=== PATIENT | male | born 1985 | race Caucasian/White ===

== ENCOUNTER 2019-02-14 10:24 | Emergency (ER) | payer OTHER ==
[2019-02-14 10:31] VITALS: TEMP 98.1
[2019-02-14] MEDS ORDERED: PSEUDOEPHEDRINE 30 MG TAB PO STA (10:42)
--- NOTE | 2019-02-14 10:49 | ED ---
General Adult HPI - General Chief complaint: Eye Problems Stated complaint: Eye Pain Time Seen by Provider: 02/14/19 10:33 Source: patient Mode of arrival: ambulatory Limitations: no limitations - History of Present Illness Initial comments: 33-year-old male patient presents to the emergency department today for evaluation of pain and pressure behind the right eye. Patient states the last 4 days he has woken up with this headache. Patient states that with this he will have clear tearing from the right eye and right-sided nasal congestion. Patient states that the pain is intense. Denies any blurred or double vision with this. Denies any history of similar symptoms. He denies any nausea or vomiting with this. Denies any numbness, tingling, weakness to his extremities. Does admit to smoking marijuana. Denies any alcohol use. Patient denies any recent rash, fever, chills, shortness breath, chest pain, abdominal pain, diarrhea, constipation, back pain, dizziness, hematuria, dysuria, urinary urgency, urinary frequency, or any other complaints. - Related Data Previous Rx's Medication Instructions Recorded Amoxic-Pot Clav 875-125Mg 1 tab PO Q12HR #20 tablet 02/14/19 [Augmentin 875-125] Fluticasone Nasal [place] [Flonase 2 spr EA NOSTRIL DAILY #1 bottle 02/14/19 Nasal [place]] Allergies Allergy/AdvReac Type Severity Reaction Status Date / Time No Known Allergies Allergy Verified 02/14/19 10:34 Review of Systems ROS Statement: Those systems with pertinent positive or pertinent negative responses have been documented in the HPI. ROS Other: All systems not noted in ROS Statement are negative. Past Medical History Past Medical History: Liver Disease, Pneumonia Additional Past Medical History / Comment(s): 07-10-15 c/o chest pain-admitted for mass of parencyma of lung,lytic lesion of bone on x ray.was recent tx at [facility] for lung infection/ ?pne. other past hx includes: hepatitis c, iv drug use, accidental heroin overdose on 12-27-14 and 02-12-15, anxiety, bipolar, depression. History of Any Multi-Drug Resistant Organisms: None Reported Past Surgical History: No Surgical Hx Reported Additional Past Surgical History / Comment(s): sx for undescended testicle Past Anesthesia/Blood Transfusion Reactions: No Reported Reaction Past Psychological History: Anxiety, Bipolar, Depression Smoking Status: Current every day smoker Past Alcohol Use History: Occasional Past Drug Use History: IV Drug Use, Marijuana - Past Family History Father History Unknown: Yes Mother History Unknown: Yes General Exam Limitations: no limitations General appearance: alert, in no apparent distress, other (Physical well- developed, well-nourished adult male patient in no acute distress. Vital signs upon presentation are temperature 98.1F, pulse 83, respirations 16, blood pressure 127/70, pulse ox 98% on room air.) Eye exam: Present: normal appearance, PERRL, EOMI, other (Pressure in the right eye is 22 mmHg, pressure in the left eye is 20 mmHg.). Absent: scleral icterus, conjunctival injection, nystagmus, periorbital swelling ENT exam: Present: normal exam, normal oropharynx, mucous membranes moist Respiratory exam: Present: normal lung sounds bilaterally. Absent: respiratory distress, wheezes, rales, rhonchi, stridor Cardiovascular Exam: Present: regular rate, normal rhythm, normal heart sounds. Absent: systolic murmur, diastolic murmur, rubs, gallop, clicks GI/Abdominal exam: Present: soft, normal bowel sounds. Absent: distended, tenderness, guarding, rebound, rigid Neurological exam: Present: alert, oriented X3, CN II-XII intact, other (Strength in all 4 extremities is 5/5.) Psychiatric exam: Present: normal affect, normal mood Skin exam: Present: warm, dry, intact, normal color. Absent: rash Course Vital Signs 02/14/19 02/14/19 10:28 13:23 Temperature 98.1 F Pulse Rate 83 82 Respiratory 16 18 Rate Blood Pressure 127/78 122/69 O2 Sat by Pulse 98 99 Oximetry Medical Decision Making - Medical Decision Making 33-year-old male patient presents to the emergency department today for evaluation of pain and pressure behind the right eye. Physical examination revealed no proptosis. Globe appears intact. Pressures were obtained and were within normal ranges for both eyes. Patient is neurologically intact with no focal deficits. CT of the brain was obtained and showed no acute abnormalities. CT of the sinuses was performed and showed severe paranasal sinus disease. Patient will be started on Augmentin and given 4 days. He is instructed to follow-up with the ear, nose, throat specialist for further evaluation. Return parameters were discussed in detail. He verbalizes understanding and agrees wit h this plan. - Radiology Data Radiology results: report reviewed, image reviewed CT brain without contrast was obtained. Report reviewed in its entirety. Impr ession by Dr. Loyd shows no acute intracranial and amount. Sinuses/facial bones reported separately. CT facial bones was obtained without contrast. Report reviewed in its entirety. Impression by Dr. Loyd shows findings suggestive obstruction of the right ostiomeatal complex is secondary severe right-sided paranasal sinus disease. Moderate mucosal thickening throughout the left ethmoid air cells and moderate to severe within the left maxillary sinus. No intraorbital/post septal abnormality identified with particular attention to the right eye. Widely divergent gaze suggests underlying strabismus Disposition Clinical Impression: Paranasal sinus disease, Acute headache Disposition: HOME SELF-CARE Condition: Good Instructions (If sedation given, give patient instructions): Sinusitis (ED) Additional Instructions: Follow-up with the ears, nose, throat specialist for recheck as soon as possible. Complete antibiotic prescription and full. Return to the emergency department for any new, worsening, or concerning symptoms. Prescriptions: Amoxic-Pot Clav 875-125Mg [Augmentin 875-125] 1 tab PO Q12HR #20 tablet Fluticasone Nasal [place] [Flonase Nasal [place]] 2 spr EA NOSTRIL DAILY #1 bottle Is patient prescribed a controlled substance at d/c from ED?: No Referrals: Mila Villanueva MD [Primary Care Provider] - 1-2 days Alvin Abraham DO [Doctor of Osteopathic Medicine] - 1-2 days Time of Disposition: 13:05
[2019-02-14] MEDS ORDERED: SODIUM CHLORIDE 0.9% 1,000 ML IV ONE (11:13)
[2019-02-14] MEDS ORDERED: METOCLOPRAMIDE 5 MG/ML 2 ML VIAL IVP STA (11:13)
[2019-02-14] MEDS ORDERED: KETOROLAC 30 MG/ML 1 ML VIAL IVP STA (11:13)
[2019-02-14] MEDS ORDERED: diphenhydrAMINE 50 MG/ML 1 ML VIAL IVP STA (11:13)
--- NOTE | 2019-02-14 12:27 | CT ---
EXAMINATION TYPE: CT brain wo con DATE OF EXAM: 02/14/2019 COMPARISON: None HISTORY: 33-year-old male with right eye pain, QIU TECHNIQUE: Examination was done in axial plane without intravenous contrast. Coronal and sagittal r econstructions performed. CT DLP: 1244.6 (brain and sinus) mGycm Automated exposure control for dose reduction was used. FINDINGS: There is no evidence of acute intracranial hemorrhage, acute ischemic changes, mass, mass-effect, or extra-axial fluid collection. There is no effacement of cerebral sulci or basal subarachnoid cister ns. There is no hydrocephalus. There is no midline shift. Ramey-white matter distinction is preserv ed. Facial bones reported separately. Mastoid air cells well pneumatized. IMPRESSION: No acute intracranial abnormality seen. Sinuses/facial bones reported separately.
--- NOTE | 2019-02-14 12:57 | CT ---
EXAMINATION TYPE: CT sinus wo con DATE OF EXAM: 02/14/2019 COMPARISON: None HISTORY: 33-year-old male right eye pain, QIU TECHNIQUE: Contiguous axial scanning of the paranasal sinuses without IV contrast. Coronal reconstruc tion performed. CT DLP: 1244.6 (brain and sinus) mGycm Automated exposure control for dose reduction was used. FINDINGS: Near complete opacification of the right maxillary sinus and severe mucosal thickening throughout the left maxillary sinus. There is leftward nasal septal deviation. Moderate to severe opacification right sphenoid sinus, moderate throughout the left ethmoid air cells , and complete opacification right ethmoid air cells. Near complete opacification right frontal sinus . There is opacification at the right osteomeatal complex. Leftward nasal septal deviation. Patient's gaze is slightly divergent suggesting underlying strabismus. Globes appear symmetric. Orbits appear intact. No postseptal intraorbital abnormality identified. IMPRESSION: 1. FINDINGS SUGGEST OBSTRUCTION OF THE RIGHT OSTEOMEATAL COMPLEX WITH SECONDARY SEVERE RIGHT-SIDED PA RANASAL SINUS DISEASE. ENT REFERRAL WILL LIKELY BE BENEFICIAL FOR THIS PATIENT. 2. MODERATE MUCOSAL THICKENING THROUGHOUT THE LEFT ETHMOID AIR CELLS AND MODERATE TO SEVERE WITHIN TH E LEFT MAXILLARY SINUS. 3. NO INTRAORBITAL/POSTSEPTAL ABNORMALITY IDENTIFIED WITH PARTICULAR ATTENTION TO THE RIGHT EYE. 4. WIDELY DIVERGENT GAZE SUGGESTS UNDERLYING STRABISMUS.
[2019-02-14] MEDS ORDERED: AMOXIC-POT CLAV 875MG STARTER 2 EACH TABLET PO STA (13:03)
[2019-02-14 13:24] VITALS: BP 122/69; PULSE 82; RESP 18
== END 2019-02-14 13:24 | disposition home or self-care (01) ==
LOC: EC 10:24
DX: J34.9 Unspecified disorder of nose and nasal sinuses (principal); R51 Headache; H57.11 Ocular pain, right eye; F17.200 Nicotine dependence, unspecified, uncomplicated
CPT/HCPCS: 70450; 70486; 99283; 96374; 96375 ×2; 96361 ×2; J1200; J2765; J1885

== ENCOUNTER 2019-10-13 13:25 | Emergency (ER) | payer OTHER ==
[2019-10-13 13:37] VITALS: TEMP 97.8
[2019-10-13] MEDS ORDERED: DIPH,PERTUS(ACELL)TETVAC-LF 0.5 ML VIAL IM ONE (13:44)
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
[2019-10-13 15:32] VITALS: BP 132/78; PULSE 79; RESP 16
== END 2019-10-13 15:31 | disposition home or self-care (01) ==
LOC: EC 13:25
DX: F41.9 Anxiety disorder, unspecified (principal); F32.9 Major depressive disorder, single episode, unspecified; F22 Delusional disorders; S61.412A Laceration without foreign body of left hand, initial encounter; Z23 Encounter for immunization; F17.200 Nicotine dependence, unspecified, uncomplicated; X58.XXXA Exposure to other specified factors, initial encounter
CPT/HCPCS: 82075; 90471; 90715; 99284

== ENCOUNTER 2020-12-08 14:13 | Emergency (ER) | payer OTHER ==
[2020-12-08 14:18] VITALS: RESP 16; TEMP 97.8
[2020-12-08 14:45] LABS: Appearance,Urine Clear (Clear); Bilirubin,Urine Negative (Negative); Blood,Urine Negative (Negative); Color,Urine Yellow; Glucose,Urine (UA) Negative (Negative); Ketones,Urine Negative (Negative); Leukocyte Esterase,Urine Negative (Negative); Nitrite,Urine Negative (Negative); PH, Urine 5.5 (5.0-8.0); Protein,Urine Trace (Negative); Specific Gravity,Urine 1.026 (1.001-1.035)
--- NOTE | 2020-12-08 14:53 | ED ---
General Adult HPI - General Chief complaint: Abdominal Pain Stated complaint: Poss hernia Time Seen by Provider: 12/08/20 14:20 Source: patient, RN notes reviewed Mode of arrival: ambulatory Limitations: no limitations - History of Present Illness Initial comments: 35-year-old male with a past medical history of pneumonia, IV drug abuse, hepatitis C presents to the emergency room for a chief complaint of pain of the right groin. Patient states this has been ongoing for several months now. States that he feels a bulge at times above his right groin. States that this happens when he yells at work or lifts heavy objects. Patient states he seems to becoming more frequently which is what brought him into the emergency room. Patient has not followed up with primary care or surgery for this. Patient states sometimes the pain radiates into the testicle. At this time patient is denying any pain and is a symptomatic.Patient has no other complaints at this time including shortness of breath, chest pain, nausea or vomiting, headache, or visual changes. - Related Data Previous Rx's Medication Instructions Recorded Amoxic-Pot Clav 875-125Mg 1 tab PO Q12HR #20 tablet 02/14/19 [Augmentin 875-125] Fluticasone Nasal [place] [Flonase 2 spr EA NOSTRIL DAILY #1 bottle 02/14/19 Nasal [place]] Allergies Allergy/AdvReac Type Severity Reaction Status Date / Time No Known Allergies Allergy Verified 12/08/20 14:18 Review of Systems ROS Statement: Those systems with pertinent positive or pertinent negative responses have been documented in the HPI. ROS Other: All systems not noted in ROS Statement are negative. Past Medical History Past Medical History: Pneumonia Additional Past Medical History / Comment(s): 07-10-15 c/o chest pain-admitted for mass of parencyma of lung,lytic lesion of bone on x ray.was [facility]/ ?pne. other past hx includes: hepatitis C, iv drug use, accidental heroin overdose on 12-27-14 and 02-12-15, anxiety, bipolar, depression. History of Any Multi-Drug Resistant Organisms: None Reported Past Surgical History: No Surgical Hx Reported Additional Past Surgical History / Comment(s): sx for undescended testicle Past Anesthesia/Blood Transfusion Reactions: No Reported Reaction Past Psychological History: Anxiety, Bipolar, Depression Past Alcohol Use History: Occasional Past Drug Use History: None Reported - Past Family History Father History Unknown: Yes Mother History Unknown: Yes General Exam Limitations: no limitations General appearance: alert, in no apparent distress Head exam: Present: atraumatic, normocephalic, normal inspection Eye exam: Present: normal appearance, PERRL, EOMI. Absent: scleral icterus, conjunctival injection, periorbital swelling ENT exam: Present: normal exam, mucous membranes moist Neck exam: Present: normal inspection, full ROM. Absent: tenderness, meningismus, lymphadenopathy Respiratory exam: Present: normal lung sounds bilaterally. Absent: respiratory distress, wheezes, rales, rhonchi, stridor Cardiovascular Exam: Present: regular rate, normal rhythm, normal heart sounds. Absent: systolic murmur, diastolic murmur, rubs, gallop, clicks GI/Abdominal exam: Present: soft, normal bowel sounds. Absent: distended, tenderness, guarding, rebound, rigid exam: Present: normal inspection, other (Kimmie SOMMERS present for exam). Absent: testicular tenderness, urethral discharge, scrotal swelling, vertical testicular lie, circumcision Course Vital Signs 12/08/20 14:14 Temperature 97.8 F Pulse Rate 62 Respiratory 16 Rate Blood Pressure 133/88 O2 Sat by Pulse 98 Oximetry Medical Decision Making - Medical Decision Making HPI physical exam as documented. Patient has pain to the right groin for the past several months. No appreciable hernia on exam. No testicular pain or tenderness. Ultrasound did reveal right groin adenopathy with largest measuring 1 x 0.5 x 0.6 cm. Unable to visualize a break in the wall for hernia with Valsalva at this time. Urinalysis unremarkable, I do not see any evidence of infection. I do think patient needs to follow up with primary care for adenopathy. Given symptoms are consistent with hernia such as feelings of pressure when yelling or lifting heavy objects we will refer him to general surgery. No evidence for incarcerated or strangulated hernia now. - Lab Data Lab Results 12/08/20 Range/Units 14:39 Urine Color Yellow Urine Appearance Clear (Clear) Urine pH 5.5 (5.0-8.0) Ur Specific [place] 1.026 (1.001-1.035) Urine Protein Trace H (Negative) Urine Glucose (UA) Negative (Negative) Urine Ketones Negative (Negative) Urine Blood Negative (Negative) Urine Nitrite Negative (Negative) Urine Bilirubin Negative (Negative) Urine Urobilinogen 2.0 (<2.0) mg/dL Ur Leukocyte Esterase Negative (Negative) Disposition Clinical Impression: Adenopathy, Rt groin pain Disposition: HOME SELF-CARE Condition: Good Instructions (If sedation given, give patient instructions): Groin Pain (ED), Lymphadenopathy (ED) Additional Instructions: Please follow-up with your doctor in one to 2 days as ultrasound results. Follow up with general surgery. Return to the emergency room for any worsening symptoms such as severe pain that will not subside. Is patient prescribed a controlled substance at d/c from ED?: No Referrals: Mila Villanueva MD [Primary Care Provider] - 1-2 days Chacorta Cerna MD [STAFF PHYSICIAN] - 1-2 days Time of Disposition: 15:49
--- NOTE | 2020-12-08 15:23 | US ---
EXAMINATION TYPE: US groin RT DATE OF EXAM: 12/08/2020 COMPARISON: NONE CLINICAL HISTORY: hernia. right groin pain right groin scanned, lymph nodes visualized with largest = 1.0 x 0.5 x 0.6cm. unable to visualize a b reak in the wall (hernia) with valsalva by ultrasound at this time. If additional evaluation would b e of benefit, consider CT to evaluate for hernia. IMPRESSION: 1. Right groin adenopathy. 2. No discrete abnormality to suggest inguinal hernia.
[2020-12-08 16:31] VITALS: BP 135/82; PULSE 65
== END 2020-12-08 16:30 | disposition home or self-care (01) ==
LOC: EC 14:13
DX: R59.9 Enlarged lymph nodes, unspecified (principal); F32.9 Major depressive disorder, single episode, unspecified; Z86.19 Personal history of other infectious and parasitic diseases
CPT/HCPCS: 81003; 99284

== ENCOUNTER → 2021-09-14 | Outpatient (CLI) | payer BC, OTHER ==
--- NOTE | 2021-09-14 11:25 | US ---
EXAMINATION TYPE: US scrotum with doppler. Grayscale and color Doppler Duplex imaging performed of t he scrotum. DATE OF EXAM: 09/14/2021 COMPARISON: NONE CLINICAL HISTORY: Testicular pain N50.81. Right testicular pain x months noted with exercise workout; palpable noted inferiorly right sac EXAM MEASUREMENTS: TESTICLES: Right Testicle: 5.7 x 4.0 x 2.3 cm Left Testicle: 4.4 x 3.6 x 1.8 cm EPIDIDYMIS HEAD: Right Epididymis: 0.6 x 1.6 x 1.0 cm Left Epididymis: 1.0 x 1.7 x 0.9 cm Doppler performed to assess for testicular vascularity; good bilateral color flow and Doppler wavefor ms are seen. Right epididymal head cyst seen = 0.2 x 0.2 x 0.1cm. Left epididymal head cyst seen = 0.3 x 0.2 x 0.3 cm. Presence of hydroceles: small hydrocele noted medial inferior right scrotal sac = 2.1 x 0.9 x 1.1cm. Presence of varicoceles: Prominent vein diameter in neutral transverse position only seen inferiorly bilaterally: right inferior vein diameter = 2.8mm and left inferior vein diameter 3.6mm (normal size less than 2.5mm). IMPRESSION: Suspect small inferior bilateral varicoceles. No concerning focal intratesticular mass. T iny epididymal cysts bilaterally incidentally noted. Satisfactory symmetric blood flow to both testic les seen.
== END | disposition home or self-care (01) ==
LOC: RADUSWWP 08:27
PROVIDERS: ATTEND Internal Medicine
DX: N50.811 Right testicular pain (principal)
CPT/HCPCS: 76870; 93975

== ENCOUNTER 2022-06-02 18:43 | Emergency (ER) | payer BC, OTHER ==
[2022-06-02 19:30] VITALS: BP 116/69; PULSE 62; RESP 18; TEMP 98
[2022-06-02] MEDS ORDERED: ORPHENADRINE 30 MG/ML 2 ML VIAL IM STA (19:45)
[2022-06-02] MEDS ORDERED: KETOROLAC 15 MG/ML 1 ML VIAL IM STA (19:45)
[2022-06-02] MEDS ORDERED: ACETAMINOPHEN TAB 500 MG TAB PO STA (19:45)
--- NOTE | 2022-06-02 19:51 | ED ---
Back Pain HPI - General Chief Complaint: Back Pain/Injury Stated Complaint: lower back pain Time Seen by Provider: 06/02/22 19:35 Source: patient, RN notes reviewed Limitations: no limitations - History of Present Illness Initial Comments: Patient injured his back when he was doing some work with a friend. Patient states he was lifting. There is no fall or direct trauma. Patient complaining of pain in the right lower back which is exacerbated by twisting, bending, lifting. No urinary symptomology. No fever or chills. No back pain elsewhere. No radicular pain. No headache, no fever or chills, no changes in vision or hearing, no sore throat or difficulty with speech, no neck pain, no chest pain or shortness of breath, no abdominal pain, no nausea or vomiting, no changes in urination or bowel movements, no numbness or tingling, no extremity pain, no skin rashes or lesions. Past medical, surgical, social, and family history reviewed. MD Complaint: back pain - Related Data Previous Rx's Medication Instructions Recorded Amoxic-Pot Clav 875-125Mg 1 tab PO Q12HR #20 tablet 02/14/19 [Augmentin 875-125] Fluticasone Nasal [place] [Flonase 2 spr EA NOSTRIL DAILY #1 bottle 02/14/19 Nasal [place]] Acetaminophen Tab [Tylenol Tab] 500 mg PO Q6H PRN #24 tablet 06/02/22 Cyclobenzaprine [Flexeril] 10 mg PO TID PRN #20 tab 06/02/22 Naproxen [Naprosyn] 375 mg PO Q12HR PRN #20 tablet 06/02/22 Allergies Allergy/AdvReac Type Severity Reaction Status Date / Time No Known Allergies Allergy Verified 06/02/22 19:30 Review of Systems ROS Statement: Those systems with pertinent positive or pertinent negative responses have been documented in the HPI. ROS Other: All systems not noted in ROS Statement are negative. Past Medical History Past Medical History: Pneumonia Additional Past Medical History / Comment(s): 07-10-15 c/o chest pain-admitted for mass of parencyma of lung,lytic lesion of bone on x ray.was recent tx at [facility] for lung infection/ ?pne. other past hx includes: hepatitis C, iv drug use, accidental heroin overdose on 3-21-15 and 5-7-15, anxiety, bipolar, depression. History of Any Multi-Drug Resistant Organisms: None Reported Past Surgical History: No Surgical Hx Reported Additional Past Surgical History / Comment(s): sx for undescended testicle Past Anesthesia/Blood Transfusion Reactions: No Reported Reaction Past Psychological History: Anxiety, Bipolar, Depression Smoking Status: Never smoker Past Alcohol Use History: Occasional Past Drug Use History: Marijuana - Past Family History Father History Unknown: Yes Mother History Unknown: Yes General Exam - General Exam Comments Initial Comments: Patient does not appear to be ill or toxic. Vital signs stable, cranial nerves II through XII grossly intact Limitations: no limitations General appearance: in distress (Mild) Head exam: Present: atraumatic, normocephalic, normal inspection Eye exam: Present: normal appearance, PERRL, EOMI. Absent: scleral icterus, conjunctival injection, periorbital swelling ENT exam: Present: normal exam, mucous membranes moist Neck exam: Present: normal inspection, full ROM. Absent: tenderness, meningismus, lymphadenopathy Respiratory exam: Present: normal lung sounds bilaterally. Absent: respiratory distress, wheezes, rales, rhonchi, stridor Cardiovascular Exam: Present: regular rate, normal rhythm, normal heart sounds. Absent: systolic murmur, diastolic murmur, rubs, gallop, clicks GI/Abdominal exam: Present: soft, normal bowel sounds. Absent: distended, tenderness, guarding, rebound, rigid Extremities exam: Present: normal inspection, full ROM, normal capillary refill. Absent: tenderness, pedal edema, joint swelling, calf tenderness Back exam: Present: normal inspection, full ROM (With pain in the right lumbar paraspinal area), tenderness (Minimal tenderness, right lumbar paraspinals with palpable spasm), muscle spasm (Right lumbar paraspinal), paraspinal tenderness, other (Straight leg raise negative bilaterally. [facility] test is normal). Absent: CVA tenderness (R), CVA tenderness (L), vertebral tenderness, rash noted Neurological exam: Present: alert, oriented X3, CN II-XII intact, normal gait, reflexes normal, other (Great toe extensor strength is normal). Absent: altered, motor sensory deficit Psychiatric exam: Present: normal affect, normal mood Skin exam: Present: warm, dry, intact, normal color. Absent: rash Course Vital Signs 06/02/22 19:27 Temperature 98.0 F Pulse Rate 62 Respiratory 18 Rate Blood Pressure 116/69 O2 Sat by Pulse 99 Oximetry Medical Decision Making - Medical Decision Making -There are no red flags for concerning back pathology. Specifically: -No history of cancer, this is not a mass effect, MRI not indicated. -No anticoagulation, this is not a bleed. -No fevers, no IVDU, this is not an infectious process. -No trauma, no bony pain, x-rays are not indicated. -With a normal neuro exam, and no urinary or bowel retention or incontinence, there is no clinical sign of motor defect or cauda equina - MRI is not indicated at this point. -No pulsating abdominal mass or risk factors for AAA. -Pain is relieved with rest, which is also less concerning. -I do not believe that x-rays or emergent MRI is indicated at this time. -We will treat symptomatically and discharge home with follow up instructions. -Stretching/strengthening exercise given to patient and they will be referred to physical therapy -Patient is instructed to use [id number] analgesics as directed on packaging for pain. Patient was told to return to the ER for any signs or symptoms worsen. Told to return immediately if any other problems arise. All questions answered. Treatment plan discussed. Patient in agreement Every effort has been made to ensure accuracy of this dictation. However, due to the limitations of electronic medical records and dictation devices, errors in charting still occur. Supervising physicians Dr. Pink Disposition Clinical Impression: Acute lumbar myofascial strain Disposition: HOME SELF-CARE Condition: Stable Instructions (If sedation given, give patient instructions): Low Back Strain (ED) Additional Instructions: Follow-up with your regular physician as directed. Return to the ER immediately if any symptoms worsen, new symptoms arise, or any other problems develop. Prescriptions: Cyclobenzaprine [Flexeril] 10 mg PO TID PRN #20 tab PRN Reason: Spasms Naproxen [Naprosyn] 375 mg PO Q12HR PRN #20 tablet PRN Reason: Pain Acetaminophen Tab [Tylenol Tab] 500 mg PO Q6H PRN #24 tablet PRN Reason: Pain Is patient prescribed a controlled substance at d/c from ED?: No Referrals: Mila Villanueva MD [Primary Care Provider] - 1-2 days Time of Disposition: 19:47
== END 2022-06-02 20:25 | disposition home or self-care (01) ==
LOC: EC 18:43
DX: S39.012A Strain of muscle, fascia and tendon of lower back, initial encounter (principal); X50.9XXA Other and unspecified overexertion or strenuous movements or postures, initial encounter; Y93.89 Activity, other specified
CPT/HCPCS: 99283; 96372; J2360; J1885

== ENCOUNTER 2022-09-23 07:20 | Day surgery (SDC) | payer BC, OTHER ==
[2022-09-20 13:55] VITALS: BMI 25.1
[2022-09-23 07:59] VITALS: RESP 16; TEMP 98.4
[2022-09-23] MEDS ORDERED: LACTATED RINGERS 1,000 ML IV ONE (07:59)
[2022-09-23] MEDS ORDERED: MIDAZOLAM 2 MG/2 ML VIAL ONE (08:41)
[2022-09-23] MEDS ORDERED: PROPOFOL 10 MG/ML 20 ML VIAL IV ONE (08:41)
[2022-09-23] MEDS ORDERED: fentaNYL (PF) 50 MCG/ML 2 ML AMP ONE (08:41)
--- NOTE | 2022-09-23 08:56 | P.PCN ---
Date of Procedure: 09/23/22 Procedure(s) Performed: BRIEF HISTORY: Patient is a 37-year-old pleasant white male scheduled for an elective colonoscopy as a part of evaluation of intermittent rectal bleeding for the last 2 years duration. PROCEDURE PERFORMED: Colonoscopy. PREOPERATIVE DIAGNOSIS: Intermittent rectal bleeding of 2 years duration. IV sedation per Anesthesia. PROCEDURE: After informed consent was obtained, the patient, was brought into the endoscopy unit. IV sedation was administered by Anesthesia under continuous monitoring. Digital rectal examination was normal. Initially the Olympus CF-160 flexible video colonoscope was then inserted in the rectum, gradually advanced into the cecum without any difficulty. Careful examination was performed as the scope was gradually being withdrawn. Ileocecal valve and the appendiceal orifice were visualized and appeared normal. Prep was excellent. Mucosa of the cecum, ascending colon, transverse colon, descending colon, sigmoid colon, and rectum appeared normal. Retroflexion was performed in the rectum and small internal hemorrhoids were seen. The patient tolerated the procedure well. IMPRESSION: Normal-appearing colon from rectum to cecum with no evidence of colorectal neoplasia . Small internal hemorrhoids. RECOMMENDATIONS: Findings of this examination were discussed with the patient as well as his family..he was advised to be a high-fiber diet and take fiber supplements a regular basis. Recommend repeat screening colonoscopy in 10 years
[2022-09-23 09:41] VITALS: BP 121/77; PULSE 51
== END 2022-09-23 09:43 | disposition home or self-care (01) ==
LOC: ORWHC2ENDO 07:20
PROVIDERS: ATTEND Internal Medicine Gastroenterology
DX: K64.8 Other hemorrhoids (principal); K62.5 Hemorrhage of anus and rectum
CPT/HCPCS: 45378; J2250; J3010; J2704

== ENCOUNTER → 2023-02-01 | Outpatient (CLI) | payer OTHER ==
[2023-02-01 15:24] LABS: Basophils # (A) 0.05 X 10*3/uL (0.00-0.10); Basophils % (A) 0.9 %; Eosinophils # (A) 0.31 X 10*3/uL (0.04-0.35); Eosinophils % (A) 5.3 %; HCT 42.6 % (39.6-50.0); Immature Grans, Automated 0.2 %; Lymphocytes # (A) 1.89 X 10*3/uL (0.90-5.00); Lymphocytes % (A) 32.5 %; MCH 31.5 pg (27.0-32.0); MCHC 32.9 g/dL (32.0-37.0); MCV 95.9 fL (80.0-97.0); Mean Platelet Volume 12.2 fL (9.5-12.2); Monocytes # (A) 0.57 X 10*3/uL (0.20-1.00); Monocytes % (A) 9.8 %; NRBC Per 100 WBC 0 /100 WBCS (0.0-0.0); Neutrophils # (A) 2.99 X 10*3/uL (1.80-7.70); Neutrophils % (A) 51.3 %; Platelet Count 135 X 10*3/uL (140-440); RBC 4.44 X 10*6/uL (4.40-5.60); RDW 12.9 % (11.5-14.5); WBC 5.82 X 10*3/uL (4.50-10.00)
[2023-02-01 16:15] LABS: ALT 42 U/L (10-49); AST 28 U/L (14-35); African American GFR (CKD) 125.1 (60.0-200.0); Albumin 4.3 g/dL (3.8-4.9); Albumin/Globulin Ratio 1.87 (1.60-3.17); Alkaline Phosphatase 70 U/L (41-126); BUN/Creat Ratio 11.78 Ratio (12.00-20.00); Blood Urea Nitrogen 10.6 mg/dL (9.0-27.0); Calcium 8.9 mg/dL (8.7-10.3); Carbon Dioxide 25.8 mmol/L (20.0-27.5); Chloride 110 mmol/L (96-109); Globulin 2.3 g/dL (1.6-3.3); Glucose 90 mg/dL (70-110); Potassium 4.2 mmol/L (3.5-5.5); Sodium 144 mmol/L (135-145); Total Bilirubin <0.15 mg/dL (0.30-1.20); Total Protein 6.6 g/dL (6.2-8.2)
== END | disposition home or self-care (01) ==
LOC: LABWHC1 09:39
PROVIDERS: ATTEND Nurse Practitioner Family
DX: Z86.19 Personal history of other infectious and parasitic diseases (principal)
CPT/HCPCS: 36415; 80053; 85025; 87522

== ENCOUNTER → 2023-02-23 | Outpatient (CLI) | payer OTHER ==
[2023-02-23 15:04] LABS: Albumin 4.4 g/dL (3.8-4.9); Albumin/Globulin Ratio 1.83 (1.60-3.17); Anion Gap 9.7 mmol/L (10.00-18.00); BUN/Creat Ratio 9.75 Ratio (12.00-20.00); Blood Urea Nitrogen 9.1 mg/dL (9.0-27.0); Carbon Dioxide 25.3 mmol/L (20.0-27.5); Globulin 2.4 g/dL (1.6-3.3); Non-African American GFR(CKD) 103.5 (60.0-200.0); Potassium 4.2 mmol/L (3.5-5.5); Total Bilirubin 0.4 mg/dL (0.30-1.20); Total Protein 6.9 g/dL (6.2-8.2)
[2023-02-23 15:19] LABS: Hepatitis B Surface Antigen Nonreactive (Nonreactive)
== END | disposition home or self-care (01) ==
LOC: LABWHC1 07:36
PROVIDERS: ATTEND Nurse Practitioner Family
DX: B18.2 Chronic viral hepatitis C (principal)
CPT/HCPCS: 36415; 80053; 82105; 86704; 87340

== ENCOUNTER → 2023-03-02 | Outpatient (CLI) | payer OTHER ==
--- NOTE | 2023-03-02 12:49 | US ---
EXAMINATION TYPE: US liver DATE OF EXAM: 03/02/2023 COMPARISON: NONE CLINICAL INDICATION: Male, 37 years old with history of B18.2 CHRONIC HEP C; Chronic Hepatitis C TECHNIQUE: Multiple sonographic images of the right upper quadrant are obtained. FINDINGS: EXAM MEASUREMENTS: Liver Length: 16.8 cm Gallbladder Wall: 0.3 cm CBD: 0.4 cm Right Kidney: 10.2 x 5.1 x 4.1 cm Pancreas: Tail obscured by overlying bowel gas Liver: appears wnl. No focal lesion. Gallbladder: Scattered ring down artifact along the anterior wall. No abnormal distention, wall thic kening, or shadowing calculus. Evidence for sonographic Rivas's sign: no CBD: wnl Right Kidney: no evidence of hydronephrosis IMPRESSION: Some scattered cholesterolosis/adenomyomatosis along the gallbladder wall. No gallstones or biliary d uctal dilatation. No focal hepatic lesion seen.
== END | disposition home or self-care (01) ==
LOC: RADUSWWP 07:53
PROVIDERS: ATTEND Internal Medicine Gastroenterology
DX: B18.2 Chronic viral hepatitis C (principal); K82.8 Other specified diseases of gallbladder
CPT/HCPCS: 76705

== ENCOUNTER 2023-03-19 15:24 | Emergency (ER) | payer OTHER ==
--- NOTE | 2023-03-19 16:32 | ED ---
General Adult HPI - General Source: patient, RN notes reviewed Limitations: no limitations <Jose Dietz - Last Filed: 03/19/23 16:31> - General Source: patient, family, RN notes reviewed Limitations: no limitations <James Pink - Last Filed: 03/19/23 18:01> - General Chief complaint: Extremity Problem,Nontraumatic Stated complaint: right leg numbness Time Seen by Provider: 03/19/23 16:31 - History of Present Illness Initial comments: 38-year-old male presents emergency Department chief complaint right leg pain and numbness. Patient states started 2 days ago which he that he is having sciatica issues. Patient states that he was seen at [facility] and received Toradol he states that symptoms seemed to worsen. He denies any bowel, bladder incontinence or retention or saddle anesthesias. Patient states pains radiating down his right leg from his back and hip region (Jose Dietz) Patient is a pleasant 38-year-old male presenting to the emergency department with concerns with right leg pain. Patient states symptoms started right lower back and did radiate to the right leg, even towards the knee. Patient has pierced seizures. No loss of sensation. No weakness. No tendons retention of bowel or bladder products. Patient does have history of similar symptoms previously. Patient has previously seen for this. (James Pink) - Related Data Previous Rx's Medication Instructions Recorded Cyclobenzaprine [Flexeril] 10 mg PO TID PRN #12 tablet 03/19/23 predniSONE [Deltasone] 20 mg PO BID #10 tab 03/19/23 Allergies Allergy/AdvReac Type Severity Reaction Status Date / Time No Known Allergies Allergy Verified 03/19/23 15:41 Review of Systems ROS Other: All systems not noted in ROS Statement are negative. <Jose Dietz - Last Filed: 03/19/23 16:31> ROS Other: All systems not noted in ROS Statement are negative. Constitutional: Denies: fever Eyes: Denies: eye pain ENT: Denies: ear pain Respiratory: Denies: cough Cardiovascular: Denies: chest pain Endocrine: Denies: fatigue Gastrointestinal: Denies: abdominal pain Genitourinary: Denies: urgency Musculoskeletal: Reports: as per HPI, back pain Skin: Denies: rash Neurological: Reports: paresthesias. Denies: weakness <James Pink - Last Filed: 03/19/23 18:01> ROS Statement: Those systems with pertinent positive or pertinent negative responses have been documented in the HPI. Past Medical History Past Medical History: GI Bleed, Pneumonia Additional Past Medical History / Comment(s): chest pain to right side at nipple line similar to past treated mass of parenchyma of lung, was tx at [facility] for lung infection and evaluated at [facility] in 2019 and told hsad pulled muscle and was suppose to have a biospy done of mass but not yet done. other past hx includes: hepatitis C, iv drug use and polysubstance abuse sober at 5 years, previous documented unintentional heroin overdose on 12-27-14 and 02-12-15 pt now states was intentional in retrospect, anxiety, bipolar, depression.lytic lesion of bone, bright red rectal bleeding for 20 years hx hemmorhhoids History of Any Multi-Drug Resistant Organisms: None Reported Past Surgical History: No Surgical Hx Reported Additional Past Surgical History / Comment(s): sx for undescended testicle Past Anesthesia/Blood Transfusion Reactions: No Reported Reaction Past Psychological History: Anxiety, Bipolar, Depression Smoking Status: Former smoker, Vaper Past Alcohol Use History: Occasional Past Drug Use History: Marijuana - Past Family History Sister(s) Family Medical History: Cancer Father History Unknown: Yes Family Medical History: No Reported History Mother History Unknown: Yes Family Medical History: Chest Pain / Angina, Myocardial Infarction ([place]) <Jose Dietz - Last Filed: 03/19/23 16:31> General Exam Limitations: no limitations <Jose Dietz - Last Filed: 03/19/23 16:31> Limitations: no limitations General appearance: alert, in no apparent distress Head exam: Present: normocephalic Eye exam: Present: normal appearance Neck exam: Present: normal inspection Respiratory exam: Present: normal lung sounds bilaterally Cardiovascular Exam: Present: regular rate, normal rhythm Expanded Peripheral pulses: 2+: Posterior Tibialis (R), Posterior Tibialis (L), Dorsalis Pedis (R), Dorsalis Pedis (L) GI/Abdominal exam: Present: soft. Absent: tenderness Extremities exam: Present: normal inspection. Absent: tenderness Back exam: Present: tenderness (Mild tenderness near the right PSIS) Neurological exam: Present: alert. Absent: motor sensory deficit Expanded Speech: Present: fluid speech Sensory exam: Lower Extremity Light Touch: Normal Motor strength exam: RUE: 5, LUE: 5, RLE: 5, LLE: 5 Psychiatric exam: Present: normal affect, normal mood Skin exam: Present: normal color <JoesphJames - Last Filed: 03/19/23 18:01> - General Exam Comments Initial Comments: Visual Physical Exam Vital signs reviewed General: Well-appearing, nontoxic, no acute distress. Head: Normocephalic, atraumatic Eyes: PERRLA, EOMI ENT: Airway patent Chest: Nonlabored breathing Skin: No visual rash, normal skin tone Neuro: Alert and oriented 3 Musculoskeletal: No gross abnormalities (Jose Dietz) Course Vital Signs 03/19/23 15:39 Temperature 98.4 F Pulse Rate 71 Respiratory 20 Rate Blood Pressure 128/87 O2 Sat by Pulse 99 Oximetry Medical Decision Making <PinkJames - Last Filed: 03/19/23 18:01> - Medical Decision Making Was pt. sent in by a medical professional or institution (, PA, [employer], urgent care, hospital, or half-way...) When possible be specific @ -No Did you speak to anyone other than the patient for history (EMS, parent, family, police, friend...)? What history was obtained from this source @ -Family present health right history including history of previous problems and steroid injection from last visit. Did you review nursing and triage notes (agree or disagree)? Why? @ -I reviewed and agree with nursing and triage notes Were old charts reviewed (outside hosp., previous admission, EMS record, old EKG, old radiological studies, urgent care reports/EKG's, half-way records)? Report findings @ -No old charts were reviewed Differential Diagnosis (chest pain, altered mental status, abdominal pain women, abdominal pain men, vaginal bleeding, weakness, fever, dyspnea, syncope, headache, dizziness, GI bleed, back pain, seizure, CVA, palpatations, mental health)? @ -Differential Back Pain: Strain, zoster, cauda equina syndrome, epidural abscess, vertebral osteomyelitis, discitis, fracture, subluxation, disc herniation, DJD, spinal stenosis, dissection, AAA, pancreatitis, peptic ulcer disease, pyelonephritis, kidney stone, this is not meant to be an all-inclusive list. EKG interpreted by me (3pts min.). @ -As above X-rays interpreted by me (1pt min.). @ -Lumbar x-rays show mild degenerative changes CT interpreted by me (1pt min.). @ -None done U/S interpreted by me (1pt. min.). @ -None done What testing was considered but not performed or refused? (CT, X-rays, U/S, labs)? Why? @ -None What meds were considered but not given or refused? Why? @ -None Did you discuss the management of the patient with other professionals (professionals i.e. Dr., PA, [employer] [facility], lab, RT, psych nurse, health social work professor, ice cream machine operator, teacher, air antisubmarine officer, pillowcase folder)? Give summary @ -No Was smoking cessation discussed for >3mins.? @ -No Was critical care preformed (if so, how long)? @ -No Were there social determinants of health that impacted care today? How? (Homelessness, low income, unemployed, alcoholism, drug addiction, transportation, low edu. Level, literacy, decrease access to med. care, penitentiary, rehab)? @ -No Was there de-escalation of care discussed even if they declined (Discuss DNR or withdrawal of care, Hospice)? DNR status @ -No What co-morbidities impacted this encounter? (DM, HTN, Smoking, COPD, CAD, Cancer, CVA, ARF, Chemo, Hep., AIDS, mental health diagnosis, sleep apnea, morbid obesity)? @ -None Was patient admitted / discharged? Hospital course, mention meds given and route, prescriptions, significant lab abnormalities, going to OR and other pertinent info. @ -Patient evaluated. Patient and family updated. Patient will receive injections and prescription. Recommended follow-up with primary care physician and consider physical therapy. Undiagnosed new problem with uncertain prognosis? @ -No Drug Therapy requiring intensive monitoring for toxicity (Heparin, Nitro, Insulin, Cardizem)? @ -No Were any procedures done? @ -No Diagnosis/symptom? @ -Back pain, leg pain Acute, or Chronic, or Acute on Chronic? @ -Acute, acute Uncomplicated (without systemic symptoms) or Complicated (systemic symptoms)? @ -default Side effects of treatment? @ -No Exacerbation, Progression, or Severe Exacerbation? @ -No Poses a threat to life or bodily function? How? (Chest pain, [place], [place], pneumonia, PE, COPD, DKA, ARF, appy, cholecystitis, CVA, Diverticulitis, Homicidal, Suicidal, threat to staff... and all critical care pts) @ -No (James Pink) Disposition <Jose Dietz - Last Filed: 03/19/23 16:31> Is patient prescribed a controlled substance at d/c from ED?: No Time of Disposition: 18:00 <James Pink - Last Filed: 03/19/23 18:01> Clinical Impression: Back pain, Leg pain Disposition: HOME SELF-CARE Condition: Stable Instructions (If sedation given, give patient instructions): Back Pain (ED) Additional Instructions: Please do follow-up to primary care physician in the next couple days for recheck. Prescriptions have been sent to pharmacy. Have your primary care physician consider physical therapy. Return for increased pain, weakness, loss of control of bowel or bladder, worsening symptoms or other concerns. Prescriptions: predniSONE [Deltasone] 20 mg PO BID #10 tab Cyclobenzaprine [Flexeril] 10 mg PO TID PRN #12 tablet PRN Reason: Pain Referrals: Mila Villanueva MD [Primary Care Provider] - 1-2 days
--- NOTE | 2023-03-19 16:59 | XR ---
EXAMINATION TYPE: XR lumbosacral spine 5 views DATE OF EXAM: 03/19/2023 Comparison: None Clinical History: 38-year-old male with back and right leg pain Findings: There is leftward focal lesion. 5 lumbar type vertebral bodies. Mild facet degenerative change lower lumbar spine. Somewhat nodular appearance to the pedicle mid and lower lumbar spine may reflect under lying congenital spinal canal narrowing. Mild disc space narrowing scattered throughout. Vertebral penelope dy heights are preserved. Trace grade 1 retrolisthesis L1-L2. Remaining alignment is maintained. Impression: 1. Scattered mild degenerative disc disease. Facet arthropathy lower lumbar spine. Trace grade 1 retr olisthesis L1-L2. 2. Somewhat short appearance to the pedicles within the mid and lower lumbar spine could reflect a co mponent of congenital spinal canal stenosis.
[2023-03-19] MEDS ORDERED: KETOROLAC 15 MG/ML 1 ML VIAL IM STA (17:56)
[2023-03-19] MEDS ORDERED: HYDROmorphone 1 MG/ML 1 ML SYRINGE IM STA (17:56)
[2023-03-19] MEDS ORDERED: ORPHENADRINE 30 MG/ML 2 ML VIAL IM STA (18:00)
[2023-03-19 18:15] VITALS: BP 147/87; PULSE 57; RESP 18; TEMP 97.7
== END 2023-03-19 18:15 | disposition home or self-care (01) ==
LOC: EC 15:24
DX: M79.604 Pain in right leg (principal); M54.9 Dorsalgia, unspecified; Z86.59 Personal history of other mental and behavioral disorders; F17.290 Nicotine dependence, other tobacco product, uncomplicated; F12.90 Cannabis use, unspecified, uncomplicated
CPT/HCPCS: 72110; 99284; 96372 ×2; J2360; J1885

== ENCOUNTER 2023-04-19 09:27 | Day surgery (SDC) | payer OTHER ==
[~2023-04-19 09:27] MED LIST: LACTATED RINGERS 1,000 ML IV SCH; LIDOCAINE 1% (10MG/ML) FOR IV START INTRADERMA PRN
[2023-04-19 09:59] VITALS: TEMP 97.2
[2023-04-19] MEDS ORDERED: LIDOCAINE 2% INJ 20 MG/ML (2 ML VIAL) ONE (10:46)
[2023-04-19] MEDS ORDERED: PROPOFOL 10 MG/ML 20 ML VIAL IV ONE (10:46)
--- NOTE | 2023-04-19 10:54 | P.PCN ---
Date of Procedure: 04/19/23 Procedure(s) Performed: BRIEF HISTORY: Patient is a 38-year-old, pleasant, white male scheduled for an upper endoscopy as a part of evaluation of epigastric pain and atypical chest pain for the last several months duration. He denies any heartburn. He reports no dysphagia or odynophagia.. PROCEDURE PERFORMED: Esophagogastroduodenoscopy with biopsy. PREOPERATIVE DIAGNOSIS: Epigastric pain and chest pain. IV sedation per anesthesia. PROCEDURE: After informed consent was obtained, the patient was brought into the endoscopy unit. IV sedation was administered by Anesthesia under continuous monitoring. Initially the Olympus GIF-140 video endoscope was inserted into the mouth. Esophagus intubated without any difficulty. It was gradually advanced into the stomach and duodenum and carefully examined. The bulb had mild duodenitis and the second part of the duodenum appeared normal. The scope at this time was withdrawn to the stomach, adequately insufflated with air, and upon careful examination, mucosa of the antrum, had mild gastritis and biopsies were done from this area. Mucosa of the body, cardia and the fundus appeared normal. The scope was then withdrawn into the esophagus. The GE junction was located at 39 cm from the incisors. There were linear erosions in the distal esophagus consistent with LA grade B reflux esophagitis. Rest of esophagus appeared normal and ulcerations seen and the patient tolerated the procedure well. IMPRESSION: 1. Linear erosions in the distal esophagus consistent with LA grade B reflux esophagitis. 2. Mild antral gastritis and duodenitis. RECOMMENDATIONS: The findings of this examination were discussed with the patient as well as his family. He was advised to follow with the biopsy results. Recommend Pepcid 20 mg at bedtime and follow antrum reflux measures..
[2023-04-19 11:31] VITALS: BP 128/78; PULSE 81; RESP 16
== END 2023-04-19 11:43 | disposition home or self-care (01) ==
LOC: ORWHC2ENDO 09:27
PROVIDERS: ATTEND Internal Medicine Gastroenterology
DX: K29.50 Unspecified chronic gastritis without bleeding (principal); K21.00 Gastro-esophageal reflux disease with esophagitis, without bleeding; F12.90 Cannabis use, unspecified, uncomplicated; K29.80 Duodenitis without bleeding; Z79.899 Other long term (current) drug therapy
CPT/HCPCS: 88305; 43239; J2704; J2001

== ENCOUNTER → 2023-06-07 | Outpatient (CLI) | payer OTHER ==
[2023-06-07 15:24] LABS: Basophils # (A) 0.05 X 10*3/uL (0.00-0.10); Basophils % (A) 0.7 %; Eosinophils # (A) 0.32 X 10*3/uL (0.04-0.35); Eosinophils % (A) 4.6 %; HCT 46.8 % (39.6-50.0); HGB 15.4 d/dL (13.0-17.0); Lymphocytes # (A) 2.06 X 10*3/uL (0.90-5.00); Lymphocytes % (A) 29.7 %; MCH 32.2 pg (27.0-32.0); MCHC 32.9 d/dL (32.0-37.0); MCV 97.9 FL (80.0-97.0); Mean Platelet Volume 11.9 FL (9.5-12.2); Monocytes # (A) 0.73 X 10*3/uL (0.20-1.00); Monocytes % (A) 10.5 %; NRBC Per 100 WBC 0 X 10*3/uL (0.00-0.01); Neutrophils # (A) 3.75 X 10*3/uL (1.80-7.70); Neutrophils % (A) 54.2 %; Platelet Count 178 X 10*3/uL (140-440); RBC 4.78 X 10*6/uL (4.40-5.60); RDW 12.6 % (11.5-14.5); WBC 6.93 X 10*3/uL (4.50-10.00)
[2023-06-07 15:34] LABS: ALT 20 U/L (10-49); AST 24 U/L (14-35); Albumin 4.9 d/dL (3.8-4.9); Albumin/Globulin Ratio 2.04 Ratio (1.60-3.17); Alkaline Phosphatase 80 U/L (41-126); Calcium 9.7 mg/dL (8.7-10.3); Carbon Dioxide 27.9 mmol/L (21.6-31.8); Chloride 106 mmol/L (96-109); Globulin 2.4 d/dL (1.6-3.3); Glucose 97 mg/dL (70-110); Potassium 4.4 mmol/L (3.5-5.5); Sodium 144 mmol/L (135-145); Total Bilirubin 0.4 mg/dL (0.3-1.2); Total Protein 7.3 d/dL (6.2-8.2)
== END | disposition home or self-care (01) ==
LOC: LABWHC1 08:57
PROVIDERS: ATTEND Internal Medicine Gastroenterology
DX: B18.2 Chronic viral hepatitis C (principal)
CPT/HCPCS: 36415; 80053; 85025; 87522

== ENCOUNTER 2024-04-10 08:32 | Emergency (ER) | payer OTHER ==
[2024-04-10 08:36] VITALS: RESP 16
--- NOTE | 2024-04-10 08:51 | ED ---
Lower Extremity Injury HPI - General Chief Complaint: Extremity Injury, Lower Stated Complaint: stepped on nail R foot Time Seen by Provider: 04/10/24 08:37 Source: patient, RN notes reviewed Mode of arrival: ambulatory Limitations: no limitations - History of Present Illness Initial Comments: 39-year-old male presents emergency department chief complaint of right foot injury. Patient states he stepped on a long screw that went through his shoe into his foot. He is unsure when his last tetanus was. Patient states there is minor bleeding and states he has some discomfort but minimal. No other complaints no paresthesias. - Related Data Home Medications Medication Instructions Recorded Confirmed Glecaprevir/Pibrentasvir [Mavyret 3 each PO DAILY 04/13/23 04/13/23 100-40 mg Tablet] Ibuprofen 600 mg PO Q6H PRN 04/13/23 04/13/23 Previous Rx's Medication Instructions Recorded Ciprofloxacin HCl [Cipro] 500 mg PO Q12HR #14 tablet 04/10/24 Allergies Allergy/AdvReac Type Severity Reaction Status Date / Time No Known Allergies Allergy Verified 04/10/24 08:35 Review of Systems ROS Statement: Those systems with pertinent positive or pertinent negative responses have been documented in the HPI. ROS Other: All systems not noted in ROS Statement are negative. Past Medical History Past Medical History: GI Bleed, Pneumonia Additional Past Medical History / Comment(s): chest pain to right side at nipple line similar to past treated mass of parenchyma of lung, was tx at [facility] for lung infection and evaluated at [facility] in 2019 and told hsad pulled muscle and was suppose to have a biospy done of mass but not yet done. other past hx includes: hepatitis C, iv drug use and polysubstance abuse sober at 5 years, previous documented unintentional heroin overdose on 12-27-14 and 02-12-15 pt now states was intentional in retrospect, anxiety, bipolar, depression.lytic lesion of bone, bright red rectal bleeding for 20 years hx hemmorhhoids History of Any Multi-Drug Resistant Organisms: None Reported Past Surgical History: No Surgical Hx Reported Additional Past Surgical History / Comment(s): sx for undescended testicle Past Anesthesia/Blood Transfusion Reactions: No Reported Reaction Past Psychological History: Anxiety, Bipolar, Depression Smoking Status: Former smoker, Vaper Past Alcohol Use History: Occasional Past Drug Use History: Marijuana - Past Family History Sister(s) Family Medical History: Cancer Father History Unknown: Yes Family Medical History: No Reported History Mother History Unknown: Yes Family Medical History: Chest Pain / Angina, Myocardial Infarction (CA) General Exam Limitations: no limitations General appearance: alert, in no apparent distress Head exam: Present: atraumatic, normocephalic, normal inspection Respiratory exam: Present: normal lung sounds bilaterally. Absent: respiratory distress, wheezes, rales, rhonchi, stridor Cardiovascular Exam: Present: regular rate, normal rhythm, normal heart sounds. Absent: systolic murmur, diastolic murmur, rubs, gallop, clicks Extremities exam: Present: other (Right foot ball of the foot there is a puncture wound noted no active bleeding neurovascular) Course Vital Signs 04/10/24 08:33 Temperature 98 F Pulse Rate 75 Respiratory 16 Rate Blood Pressure 146/93 O2 Sat by Pulse 97 Oximetry Medical Decision Making - Medical Decision Making Was pt. sent in by a medical professional or institution ([facility] Sol, [employer], urgent care, hospital, or usp...) When possible be specific @ -No Did you speak to anyone other than the patient for history (EMS, parent, family, police, friend...)? What history was obtained from this source @ -No Did you review nursing and triage notes (agree or disagree)? Why? @ -I reviewed and agree with nursing and triage notes Were old charts reviewed (outside hosp., previous admission, EMS record, old EKG, old radiological studies, urgent care reports/EKG's, usp records)? Report findings @ -No old charts were reviewed Differential Diagnosis (chest pain, altered mental status, abdominal pain women, abdominal pain men, vaginal bleeding, weakness, fever, dyspnea, syncope, headache, dizziness, GI bleed, back pain, seizure, CVA, palpatations, mental health, musculoskeletal)? @ -Puncture wound, foot fracture, foreign body foot EKG interpreted by me (3pts min.). @ -None X-rays interpreted by me (1pt min.). @ -[X-ray right foot 3 view no acute fracture or foreign body noted CT interpreted by me (1pt min.). @ -None done U/S interpreted by me (1pt. min.). @ -None done What testing was considered but not performed or refused? (CT, X-rays, U/S, labs)? Why? @ -None What meds were considered but not given or refused? Why? @ -None Did you discuss the management of the patient with other professionals (professionals i.e. , PA, [employer], lab, RT, psych nurse, web content & social media manager, therapeutic assistant, teacher, maritime officer, manager of case management)? Give summary @ -No Was smoking cessation discussed for >3mins.? @ -No Was critical care preformed (if so, how long)? @ -No Were there social determinants of health that impacted care today? How? (Homelessness, low income, unemployed, alcoholism, drug addiction, transportation, low edu. Level, literacy, decrease access to med. care, [place] [facility], rehab)? @ -No Was there de-escalation of care discussed even if they declined (Discuss DNR or withdrawal of care, Hospice)? DNR status @ -No What co-morbidities impacted this encounter? (DM, HTN, Smoking, COPD, CAD, Cancer, CVA, ARF, Chemo, Hep., AIDS, mental health diagnosis, sleep apnea, morbid obesity)? @ -None Was patient admitted / discharged? Hospital course, mention meds given and route, prescriptions, significant lab abnormalities, going to OR and other pertinent info. @ -Discharge patient then after foot puncture wound from screw through shoe patient was updated on tetanus patient discharged on ciprofloxacin. Undiagnosed new problem with uncertain prognosis? @ -No Drug Therapy requiring intensive monitoring for toxicity (Heparin, Nitro, Insulin, Cardizem)? @ -No Were any procedures done? @ -No Diagnosis/symptom? @ -Right foot puncture wound Acute, or Chronic, or Acute on Chronic? @ -Acute Uncomplicated (without systemic symptoms) or Complicated (systemic symptoms)? @ -Uncomplicated Side effects of treatment? @ -No Exacerbation, Progression, or Severe Exacerbation? @ -No Poses a threat to life or bodily function? How? (Chest pain, [place], CA, pneumonia, PE, COPD, DKA, ARF, appy, cholecystitis, CVA, Diverticulitis, Homicidal, Suicidal, threat to staff... and all critical care pts) @ -No Disposition Clinical Impression: Puncture wound of right foot Disposition: HOME SELF-CARE Condition: Stable Instructions (If sedation given, give patient instructions): Puncture Wound in the Foot (ED) Additional Instructions: Please return to the Emergency Department if symptoms worsen or any other concerns. Prescriptions: Ciprofloxacin HCl [Cipro] 500 mg PO Q12HR #14 tablet Is patient prescribed a controlled substance at d/c from ED?: No Referrals: None,Stated [Primary Care Provider] - 1-2 days Time of Disposition: 08:50
[2024-04-10] MEDS: DIPH,PERTUS(ACELL)TETVAC-LF 0.5 ML VIAL IM ONE (08:57)
--- NOTE | 2024-04-10 09:08 | XR ---
EXAMINATION TYPE: XR foot complete RT DATE OF EXAM: 04/10/2024 COMPARISON: NONE HISTORY: 39-year-old male stepped on a nail today, puncture wound to the center ball of the foot, ron n TECHNIQUE: 3 views FINDINGS: Moderate degenerative change first MTP joint with joint space narrowing and marginal spurri ng. Mild bunion formation. No retained radiopaque foreign body seen. No soft tissue air identified. N o acute fracture, subluxation, dislocation seen. IMPRESSION: Moderate first MTP joint OA. No acute osseous abnormality seen. No retained radiopaque foreign body i dentified.
[2024-04-10] MEDS: BACITRACIN OINT 1 EACH PACKET TOPICAL ONE (09:14)
[2024-04-10 09:19] VITALS: BP 139/77; PULSE 71; TEMP 98.1
== END 2024-04-10 09:17 | disposition home or self-care (01) ==
LOC: EC 08:32
DX: S91.331A Puncture wound without foreign body, right foot, initial encounter (principal); F17.290 Nicotine dependence, other tobacco product, uncomplicated; Z23 Encounter for immunization; W45.0XXA Nail entering through skin, initial encounter
CPT/HCPCS: 90471; 90715; 99283